=== PATIENT | female | born 1990 | race Caucasian/White ===

== ENCOUNTER 2020-04-16 08:15 | Emergency (ER) | payer SELFPAY ==
[~2020-04-16] VITALS: Ht 170.2 cm; Wt 53.8 kg
[2020-04-16 08:22] VITALS: Ht 170.2 cm; Wt 53.8 kg
[2020-04-16 09:24] LABS: BASOPHIL % 0.8 % (0-2); PLATELET COUNT 270 x10^3mcL (130-400)
[2020-04-16 09:32] LABS: microscopic required? YES; urine erythrocyte TRACE (NEGATIVE)
[2020-04-16 09:58] LABS: CALCIUM 9.1 mg/dL (8.5-10.1); CARBON DIOXIDE 24.6 mmol/L (21-32); CHLORIDE SERUM 105 mmol/L (98-107); CREATININE SERUM 0.8 mg/dL (0.6-1.0); GFR1 > 60 mL/min; GLUCOSE SERUM 91 mg/dL (74-106); POTASSIUM SERUM 4.4 mmol/L (3.5-5.1); SODIUM SERUM 139 mmol/L (136-145)
[2020-04-16 10:03] LABS: ALKALINE PHOSPHATASE 79 U/L (46-116); ALT/SGPT 16 U/L (14-59); AST/SGOT 12 U/L (15-37); LIPASE 76 IU/L (73-393); TOTAL PROTEIN, SERUM 7.4 g/dL (6.4-8.2)
[2020-04-16 10:34] LABS: BILIRUBIN TOTAL 0.63 mg/dL (0.20-1.00)
[2020-04-16 10:55] VITALS: BP 115/53
== END 2020-04-16 11:25 | disposition home or self-care (01) ==
LOC: ED 08:15
PROVIDERS: Emergency Medicine
DX: K29.70 Gastritis, unspecified, without bleeding (principal); J84.10 Pulmonary fibrosis, unspecified
CPT/HCPCS: Q9967